=== PATIENT | female | born 1995 | race Caucasian/White ===

== ENCOUNTER 2017-03-02 09:35 | Observation (INO) ==
[2017-03-02 06:50] VITALS: BP 120/78
--- NOTE | 2017-03-02 06:58 | OB/GYN Progress Note ---
Date of Encounter: 03/02/17 Time of Encounter: 07:30 - Assessment and Plan (1) Dysuria Status: Acute U/A showed: Protein: 100 Blood: Large Nitrite + Leuk Esterase: Large RBC: 50-100 WBC: TNTC Squamous Epth: Many Bacteria: Many US retroperitoneal showed: 1. Moderate right hydronephrosis without evidence of obstructing lesion. 2. Echogenic debris within the lumen of the bladder either due to cystitis or blood products ; correlate with urinalysis. Gave rocephin IV and prescribed keflex for outpatient Plan for discharge with strict orders to return for fever, chills, or worsening symptoms (2) 22 weeks gestation of Status: Acute Sees Dr. Starr in the office Next appt 03/11/17 (3) Normal baseline heart rate during in second trimester Status: Acute 155 bpm Subjective - Subjective Principal diagnosis: UTI Interval history: Patient is a 21 year-old female at 22 weeks who presents to labor and delivery with possible UTI vs stone. She complains of dysuria and right back pain. The quality of the pain was an ache that has progressed to sharp with some abdominal cramping. Intensity has progressed to 10/10. A warm shower helped somewhat. She denies cloudiness or foul odor of her urine. She denies fever, chills, nausea, vomiting, diarrhea, and chest pain. She states that she thinks she has a history of stones, but she is not positive. Patient denies vaginal bleeding, contractions, and leakage of fluid. Uncomplicated course. She was last seen in the office by Dr. Starr on 02/17/17. Blood type: O+ Rubella and Varicella Immune Hep B negative All other serologies negative Antepartum ROS: other, no loss of fluid, no vaginal bleeding, no contractions Objective - Exam FHR: auscultation normal Auscultation: bilateral: normal Abdomen: Present: normal appearance, soft, gravid. Absent: tenderness Uterus: Present: normal, firm Comments: Cardiovascular: RRR. +S1 and S2 Abdomen: Mild CVAT. No tenderness to palpation.
[2017-03-02 07:07] LABS: Bilirubin,Urine Negative (Negative); Blood,Urine Large (Negative); Clarity,Urine Turbid (Clear); Color,Urine Yellow (Yellow); Glucose,Urine (UA) Normal (Normal); Ketones,Urine Negative (Negative); Leukocyte Esterase,Urine Large (Negative); Nitrite,Urine Positive (Negative); PH,Urine 7.5 pH Units (5.0-8.0); Protein,Urine 100 mg/dL (Neg-Trace); Specific Gravity,Urine 1.017 (1.010-1.025); Urobilinogen,Urine Normal (Normal)
[2017-03-02 07:09] LABS: Bacteria,Urine Many per hpf (None-Few); Hyaline Casts,Urine None Seen per lpf (None-Few); RBC,Urine 50-100 per hpf (0-3); WBC,Urine TNTC per hpf (0-3)
[2017-03-02 07:22] LABS: Squamous Epithelial Cell,Urine Many per lpf (None-Few)
[2017-03-02 10:52] LABS: Amphetamine Screen,Urine Negative ng/mL (Cutoff=1000); Barbiturate Screen,Urine Negative ng/mL (Cutoff=200); Benzodiazepines Screen,Urine Negative ng/mL (Cutoff=200); Cannabinoid Screen,Urine Negative ng/mL (Cutoff = 50); Cocaine Screen,Urine Negative ng/mL (Cutoff= 300); Opiate Screen,Urine Negative ng/mL (Cutoff=300); Phencyclidine Screen,Urine Negative ng/mL (Cutoff=25)
[2017-03-02 11:52] LABS: Basophils % 0.2 %; Eosinophils % 0.1 %; Hematocrit 33.3 % (35.3-44.9); Hemoglobin 11.2 g/dL (11.5-15.4); Immature Granulocytes % 1.2 % (0-4); Lymphocytes # 1.1 K/mcL (0.6-4.6); Lymphocytes % 8.1 %; Mean Corpuscular HGB Conc 33.6 g/dL (31.6-35.5); Mean Corpuscular Hemoglobin 28.6 pg (28.0-33.3); Mean Corpuscular Volume 84.9 fL (83.0-100.0); Mean Platelet Volume 10.1 fL (9.4-12.4); Neutrophils # 11.6 K/mcL (1.6-8.9); Platelet Count 278 K/mcL (140-400); Red Blood Count 3.92 M/mcL (3.82-4.97); Red Cell Distribution Width 14.2 % (11.5-14.5); Segmented Neutrophils % 83.4 %
[2017-03-02 12:02] LABS: BUN/Creatinine Ratio 9 (6-26); Carbon Dioxide 22 mEq/L (19-29); Chloride 107 mEq/L (98-109); Glucose 76 mg/dL (70-99); Osmolality,Calculated 278 (280-300); Potassium 3.7 mEq/L (3.5-4.5); Sodium 136 mEq/L (136-145); eGFR For African Americans > 60; eGFR For Non-African Americans > 60
[2017-03-02 12:03] LABS: Blood Urea Nitrogen 5 mg/dL (7-20)
[2017-03-02 12:10] LABS: Platelet Estimate Normal (Normal); Reactive Lymphocytes Present (Not Present)
== END 2017-03-02 13:20 | disposition home or self-care (01) ==
LOC: 1NENULAB
PROVIDERS: ADMIT Advanced Practice Midwife; ATTEND Advanced Practice Midwife

== ENCOUNTER → 2017-06-10 13:00 | Observation (INO) ==
[2017-06-10 11:40] LABS: Bilirubin,Urine Negative (Negative); Blood,Urine Negative (Negative); Clarity,Urine Clear (Clear); Color,Urine Yellow (Yellow); Glucose,Urine (UA) Normal (Normal); Ketones,Urine Negative (Negative); Leukocyte Esterase,Urine Large (Negative); Nitrite,Urine Negative (Negative); PH,Urine 6.5 pH Units (5.0-8.0); Protein,Urine Trace mg/dL (Neg-Trace); Urobilinogen,Urine Normal (Normal)
[2017-06-10 11:55] LABS: Amphetamine Screen,Urine Negative ng/mL (Cutoff=1000); Barbiturate Screen,Urine Negative ng/mL (Cutoff=200); Benzodiazepines Screen,Urine Negative ng/mL (Cutoff=200); Cannabinoid Screen,Urine Negative ng/mL (Cutoff = 50); Cocaine Screen,Urine Negative ng/mL (Cutoff= 300); Opiate Screen,Urine Negative ng/mL (Cutoff=300); Phencyclidine Screen,Urine Negative ng/mL (Cutoff=25)
--- NOTE | 2017-06-10 11:55 | OB/GYN Progress Note ---
Date of Encounter: 06/10/17 Time of Encounter: 11:53 - Assessment and Plan (1) with 36 completed weeks gestation Current Visit: Yes Status: Acute PNL completed. GBS negative. Supportive care. (2) Uterine contractions during Current Visit: Yes Status: Acute - UA shows no UTI, due to large pancho est reflex culture - heart monitor placed, currently category 1 - observe with serial cervix exams Subjective - Subjective Principal diagnosis: contractions Interval history: Lilli is a 21 y/o female at 36+3 wks with no complications presented to labor and delivery due to frequent contractions. Patient states that the began 2 days ago and then became close to each other last night every couple of minutes. Patient stated that she counted movement last night and had 5 movements in 1 hr. Patient denies vaginal bleeding or fluid loss. Patient denies fevers, chills, changes in vision, or dysuria. PNL: O+ RH-, RPR - , RI, HBsAg -, HIV -, GBS -, Gypsy+ Antepartum ROS: movement normal, contractions, no loss of fluid, no vaginal bleeding Objective - Vital Signs Vital Signs: Intake and Output 06/09/17 06/10/17 06/10/17 23:59 07:59 15:59 Other: Weight 69.7 kg Patient Weight 06/10/17 23:59 Weight 69.7 kg - Exam FHR: category 1 FHR comments: FHR 130 bpm moderate variability +15x15 accels no decels noted. Auscultation: bilateral: normal Abdomen: Present: normal appearance, soft Uterus: Present: normal Cervical dilation: 2cm Cervix effacement: 60% station: 2 Comments: per nursing. I examined this patient and my medical decision-making was reviewed with the Resident Physician. I agree with the documented findings, disposition and treatment plan as described except to the extent set forth below. JANET Hughes - Labs Labs: Abnormal lab results Ur Leukocyte Esterase Large (Negative) H 06/10/17 11:30
[2017-06-10 11:58] LABS: Mucus,Urine Few (Few); Squamous Epithelial Cell,Urine Many per lpf (None-Few)
[2017-06-10 12:00] LABS: Yeast,Urine Few per hpf (None Seen)
[2017-06-10 12:03] LABS: Bacteria,Urine Moderate per hpf (None-Few); Renal Epithelial Cells,Urine Few per hpf (None-Few)
--- NOTE | 2017-06-10 12:59 | Discharge Summary ---
Date of Encounter: 06/10/17 Time of Encounter: 13:06 - Discharge Diagnosis (1) with 36 completed weeks gestation Priority: Secondary Status: Acute (2) Uterine contractions during Priority: Primary Status: Acute Comments: Patient diagnosed with false labor as patient was observed with mild contractions and no cervix change. FHR: 130, reactive NST. Patient instructed to limit caffeine and stay hydrated. Patient instructed to take Tylenol PM for the pain. Discussed with Charlotte Duque. Pt safe for discharge home, with labor precautions, when to return to triage or call provider. Pt verbalizes understanding. - Discharge Medications Allergies/Adverse Reactions: 3 Allergy/AdvReac Type Severity Reaction Status Date / Time No Known Allergies Allergy Verified 04/12/17 17:46 Data Procedures and tests throughout hospitalization: Laboratory Tests 06/10/17 06/10/17 11:30 11:30 Urine Color Yellow Urine Clarity Clear Urine pH 6.5 Ur [place] 1.020 Urine Protein Trace Urine Glucose (UA) Normal Urine Ketones Negative Urine Blood Negative Urine Nitrite Negative Urine Bilirubin Negative Urine Urobilinogen Normal Ur Leukocyte Esterase Large H Urine Microscopic WBC 5-15 H Ur Squamous Epith Cells Many H Ur Renal Epithelial Cell Few Urine Bacteria Moderate H Urine Mucus Few Urine Yeast Few H Ur Culture Indicated? NO Urine Opiates Screen Negative Ur Barbiturates Screen Negative Ur Phencyclidine Scrn Negative Ur Amphetamines Screen Negative U Benzodiazepines Scrn Negative Urine Cocaine Screen Negative U Marijuana (THC) Screen Negative Labs on day of discharge: Labs from last 24 hours 06/10/17 06/10/17 11:30 11:30 Urine Color Yellow Urine Clarity Clear Urine pH 6.5 Ur [place] 1.020 Urine Protein Trace Urine Glucose (UA) Normal Urine Ketones Negative Urine Blood Negative Urine Nitrite Negative Urine Bilirubin Negative Urine Urobilinogen Normal Ur Leukocyte Esterase Large H Urine Microscopic WBC 5-15 H Ur Squamous Epith Cells Many H Ur Renal Epithelial Cell Few Urine Bacteria Moderate H Urine Mucus Few Urine Yeast Few H Ur Culture Indicated? NO Urine Opiates Screen Negative Ur Barbiturates Screen Negative Ur Phencyclidine Scrn Negative Ur Amphetamines Screen Negative U Benzodiazepines Scrn Negative Urine Cocaine Screen Negative U Marijuana (THC) Screen Negative Date of admission: 06/10/17 10:55 Primary care physician: Fidelia Consults: none Discharging clinician: Charlotte Duque Anticipated date of discharge: 06/10/17 - Patient Status Disposition: Home, Self-Care Condition: Good Functional capacity at discharge: independent ambulation Overall status at discharge: patient is progressing back to baseline - Discharge Instructions Follow Up With: Mavis Starr MD [Partnered Physician] - Additional Instructions: Call 911 for any of the following: You have heavy vaginal bleeding. You cannot get to the hospital before the baby starts to come out. Seek care immediately if: You have regular, painful contractions that are less than 5 minutes apart and last 30 to 70 seconds each. You have a constant trickle or sudden gush of clear fluid from your vagina. You notice a sudden decrease in your baby's movement. Contact your field underwriter or healthcare provider if: You have pain in your lower back or abdomen that does not get better when you change positions. You have bloody mucus or show. You have questions or concerns about your condition or care. Early labor signs and symptoms: Lightening occurs when your baby drops inside your pelvis. You may feel increased pressure in your pelvis. This may happen a few weeks to a few hours before your labor begins. Contractions are cramps and tightening that occur in your uterus to help move the baby through your canal. Contractions occur regularly and more often each time. Each one lasts about 30 to 70 seconds, and gets stronger until you deliver your baby. Contractions do not go away with movement. The pain usually starts in your lower back and moves to your abdomen. Effacement occurs when your cervix softens and thins, so it can easily open for the baby. You will not be able to feel effacement. Your healthcare provider will examine your cervix for effacement. Dilation is widening of your cervix. Your healthcare provider will examine your cervix for dilation. Your cervix may start to dilate weeks before your baby is delivered. Your cervix will be fully opened and ready for delivery when it is dilated to 10 centimeters. Increased discharge from your vagina may occur. It may be brown, pink, clear, or slightly bloody. This discharge may also be called bloody show. Bloody show is a mucus plug that forms and blocks your cervix during . The discharge may mean that your cervix is opening up and getting ready for delivery. Rupture of membranes is a sudden release of clear fluid from your vagina. Ruptured membranes means your water broke. Your healthcare provider may need to break your water if it does not happen on its own. - Diet and Activity Activity: increase activity as tolerated Diet: regular diet Hospital Course EXTERN Reason for admission: other (contractions) Hospital course: Lilli is a 21 y/o female at 36+3 wks with no complications presented to labor and delivery due to frequent contractions. Patient states that the began 2 days ago and then became close to each other last night every couple of minutes. Patient stated that she counted movement last night and had 5 movements in 1 hr. Patient denies vaginal bleeding or fluid loss. Patient denies fevers, chills, changes in vision, or dysuria. Patient diagnosed with false labor as patient was observed with mild contractions and no cervix changes overtime. FHR: 130, reactive NST. Patient instructed to limit caffeine and stay hydrated. Patient instructed to take Tylenol PM for the pain. Discussed with Charlotte Duque. Pt safe for discharge home, with labor precautions, when to return to triage or call provider. Pt verbalizes understanding. Time Attestation: Total time spent providing and/or coordinating discharge services: Exam - Constitutional Vitals: wnl. General appearance IM: cooperative, A&O X 3, pleasant - Respiratory Respiratory exam: Present: CTAB. Absent: accessory muscle use, stridor, wheezes , tachypnea - Cardiovascular Cardiovascular exam IM: Present: RRR - Rectal Rectal exam: deferred - Uterus Position: 3 Fingers Above Umbilicus - Extremities Exam Extremities exam IM: Absent: pedal edema, tenderness - Neurological Exam Neurological exam: CN II-XII intact - Other Additional findings: I examined this patient and my medical decision-making was reviewed with the Resident Physician. I agree with the documented findings, disposition and treatment plan as described except to the extent set forth below. JANET Hughes - VTE Reasons for not Prescribing Prophylaxis: Treatment not Indicated - Low risk for VTE
== END | disposition home or self-care (01) ==
LOC: 1NENULAB
PROVIDERS: ADMIT Obstetrics & Gynecology; ATTEND Obstetrics & Gynecology

== ENCOUNTER → 2017-06-12 16:43 | Observation (INO) ==
[2017-06-12 16:29] LABS: Amphetamine Screen,Urine Negative ng/mL (Cutoff=1000); Barbiturate Screen,Urine Negative ng/mL (Cutoff=200); Benzodiazepines Screen,Urine Negative ng/mL (Cutoff=200); Cannabinoid Screen,Urine Negative ng/mL (Cutoff = 50); Cocaine Screen,Urine Negative ng/mL (Cutoff= 300); Opiate Screen,Urine Negative ng/mL (Cutoff=300); Phencyclidine Screen,Urine Negative ng/mL (Cutoff=25)
--- NOTE | 2017-06-12 16:41 | Discharge Summary ---
Date of Encounter: 06/12/17 Time of Encounter: 16:41 - Discharge Diagnosis (1) with 36 completed weeks gestation Priority: Primary Status: Acute Comments: admitted for observation for labor (2) Uterine contractions during Priority: Secondary Status: Acute Comments: false labor - Discharge Medications Allergies/Adverse Reactions: 3 Allergy/AdvReac Type Severity Reaction Status Date / Time No Known Allergies Allergy Verified 04/12/17 17:46 Data Procedures and tests throughout hospitalization: Laboratory Tests 06/12/17 15:25 Urine Opiates Screen Negative Ur Barbiturates Screen Negative Ur Phencyclidine Scrn Negative Ur Amphetamines Screen Negative U Benzodiazepines Scrn Negative Urine Cocaine Screen Negative U Marijuana (THC) Screen Negative Labs on day of discharge: Labs from last 24 hours 06/12/17 15:25 Urine Opiates Screen Negative Ur Barbiturates Screen Negative Ur Phencyclidine Scrn Negative Ur Amphetamines Screen Negative U Benzodiazepines Scrn Negative Urine Cocaine Screen Negative U Marijuana (THC) Screen Negative Date of admission: 06/12/17 15:07 Discharging clinician: Charlotte Duque Anticipated date of discharge: 06/12/17 - Patient Status Disposition: Home, Self-Care Condition: Good Functional capacity at discharge: independent ambulation - Discharge Instructions Follow Up With: Mavis Strar MD [Partnered Physician] - - Diet and Activity Activity: increase activity as tolerated Diet: regular diet 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 Patient denies VB. Patient reports +FM. SVE by RN was 2/75/-2 nitrazine was negative and perineum was dry. Time Attestation: Total time spent providing and/or coordinating discharge services: Time Spent: Less than 30 minutes Exam - Constitutional General appearance IM: A&O X 3, pleasant, answers questions appropriately - Respiratory Respiratory exam: Present: CTAB - Cardiovascular Cardiovascular exam IM: Present: RRR, +S1, +S2 - GI/Abdominal GI/Abdominal exam IM: normal bowel sounds - Neurological Exam Neurological exam: alert, oriented X3, reflexes normal - Other Additional findings: FHR 135 bpm moderate variability +15x15 accels no decels noted. Cat. 1 tracing. Contractions irregular. No cervical change per RN - VTE Reasons for not Prescribing Prophylaxis: Treatment not Indicated - Low risk for VTE
== END | disposition home or self-care (01) ==
LOC: 1NENULAB
PROVIDERS: ADMIT Advanced Practice Midwife; ATTEND Advanced Practice Midwife

== ENCOUNTER 2017-06-29 04:00 | Inpatient (IN) ==
[2017-06-29] MEDS ORDERED: miSOPROStol 25 MCG TABLET VG PRN (04:17)
[2017-06-29] MEDS ORDERED: Naloxone 0.4 MG/ML INJ IVP PRN (04:18)
[2017-06-29] MEDS ORDERED: Famotidine 20 MG/2 ML VIAL IVP PRN (04:18)
[2017-06-29] MEDS ORDERED: Metoclopramide 10 MG/2 ML VIAL IVP PRN (04:18)
[2017-06-29] MEDS ORDERED: *HR* Nalbuphine 20 MG/ML AMPUL IVP PRN (04:18)
[2017-06-29] MEDS ORDERED: Ringers Solution, Lactated 1,000 ML IVC SCH (04:30)
[2017-06-29 04:42] LABS: Basophils % 0.2 %; Eosinophils # 0.1 K/mcL (0.0-0.6); Eosinophils % 1.2 %; Hematocrit 28.9 % (35.3-44.9); Immature Granulocytes % 1.4 % (0-4); Lymphocytes % 20.1 %; Mean Corpuscular HGB Conc 31.1 g/dL (31.6-35.5); Mean Corpuscular Hemoglobin 24.3 pg (28.0-33.3); Mean Corpuscular Volume 77.9 fL (83.0-100.0); Monocytes % 10.4 %; Neutrophils # 6.6 K/mcL (1.6-8.9); Nucleated Red Blood Cells 0.2 /100 WBC (0); Platelet Count 286 K/mcL (140-400); Red Blood Count 3.71 M/mcL (3.82-4.97); Red Cell Distribution Width 14.5 % (11.5-14.5); Segmented Neutrophils % 66.7 %
[2017-06-29 04:45] LABS: Amphetamine Screen,Urine Negative ng/mL (Cutoff=1000); Barbiturate Screen,Urine Negative ng/mL (Cutoff=200); Benzodiazepines Screen,Urine Negative ng/mL (Cutoff=200); Cannabinoid Screen,Urine Negative ng/mL (Cutoff = 50); Cocaine Screen,Urine Negative ng/mL (Cutoff= 300); Opiate Screen,Urine Negative ng/mL (Cutoff=300); Phencyclidine Screen,Urine Negative ng/mL (Cutoff=25)
--- NOTE | 2017-06-29 07:19 | OB/GYN History & Physical ---
Date of Encounter: 06/29/17 Time of Encounter: 07:17 Assessment and Plan (1) 39 weeks gestation of Current visit: Yes Status: Acute Here for elective induction of labor - admit to L&D Monitoring - baseline 120 with variability and accels Contractions irregular Induction via cytotec Expect History of Present Illness Chief complaint: Induction of labor HPI: Ms. Ny is a 21 year old female at 39w1d presenting to L&D for elective induction of labor. She reports good movement. She is feeling irregular contractions. Denies loss of fluid, vaginal bleeding, or vaginal discharge. She reports no complications with this . Denies fevers, chills, headaches, vision changes, dyspnea, abdominal pain, or edema. Blood type O+ GBS negative Rubella immune Varicella immune All other serologies negative Past Med Surg Social Fam HX - Past Medical History Medical history: no medical history Psychiatric history: no psych history - Past Surgical History Surgical History: no surgical history - Social History Smoking Status: Never smoker Smokeless Tobacco Status: No Alcohol use: none Drug use: none - Family History Mother Adopted: No Age: 46 Living Status: Still Living Hx Family Cardiac Disorders: No Hx Family Respiratory Disorders: No Hx Family Cancer: No Hx Family GI Disorders: No Hx Family Genitourinary Disorders: No Hx Family Endocrine Disorder: No Hx Family Musculoskeletal Disorders: No Hx Family Neuromuscular Disorders: No Hx Family Neurologic Disorders: No Hx Family HEENT Disorders: No Hx Family Autoimmune Disorders: No Hx Family Reproductive Disorders: No Hx Family Psychosocial Disorders: No Hx Family Medical Disorders: No Obstetrical History - Pregnancies : 1 Para: 0 Term: 0 : 0 Ab's: 0 Livin - History/Complications History/Complications: None Medications and Allergies 3 Allergy/AdvReac Type Severity Reaction Status Date / Time No Known Allergies Allergy Verified 04/12/17 17:46 Review of System OB All systems PM: reviewed and no additional remarkable complaints except as stated Exam - Vital Signs Vital signs: Initial Vital Signs Pulse Resp BP 78 15 132/89 06/29/17 04:11 06/29/17 04:11 06/29/17 04:11 - Constitutional Constitutional: well developed, well nourished, no acute distress, average body habitus - HEENT HEENT: Normocephaly, Mucus Membranes Moist - Lungs Respiratory exam: CTAB - Cardiovascular Cardiovascular exam: RRR, +S1, +S2 - Abdomen Abdomen: Present: bowel sounds normal, gravid, non tender - Extremities Extremities exam: normal capillary refill, normal inspection - Vulva Vulva: bilateral: normal - Vagina Vagina: Present: normal moisture - Cervix Dilation: 1 (1-2cm per nursing) - Uterus Uterus exam: Present: normal size, normal contour - Anus/Rectum Anus/Rectum: Present: normal perianal skin - Comments Comments: FHT - baseline 120 with variability and accels - Category I Contractions irregular Results Result Diagrams: 06/29/17 04:30 Abnormal lab results RBC 3.71 M/mcL (3.82-4.97) L 06/29/17 04:30 Hgb 9.0 g/dL (11.5-15.4) L 06/29/17 04:30 Hct 28.9 % (35.3-44.9) L 06/29/17 04:30 MCV 77.9 fL (83.0-100.0) L 06/29/17 04:30 MCH 24.3 pg (28.0-33.3) L 06/29/17 04:30 MCHC 31.1 g/dL (31.6-35.5) L 06/29/17 04:30 Nucleated RBCs/100 WBC 0.2 /100 WBC (0) H 06/29/17 04:30 All other labs normal. - VTE Reasons for not Prescribing Prophylaxis: Treatment not Indicated - Low risk for VTE
[2017-06-29] MEDS ORDERED: Oxytocin 20 units/ LR 1000 mL 20 UNIT/1,000 ML BAG IVC SCH (11:15)
[2017-06-29] MEDS ORDERED: *HR* FentaNYL (PF) 100 MCG/2 ML VIAL EP ONE (13:09)
[2017-06-29] MEDS ORDERED: Bupivacaine-MPF 0.25% 10 ML VIAL EP ONE (13:09)
[2017-06-29] MEDS ORDERED: Epidural Premix (fent/bupiv) 110 ML EP ONE ×2 (13:11→20:59)
[2017-06-29] MEDS ORDERED: Bupivacaine-MPF 0.25% 10 ML VIAL ONE (13:11)
[2017-06-29] MEDS ORDERED: *HR* FentaNYL (PF) 100 MCG/2 ML VIAL ONE ×2 (13:12→23:00)
[2017-06-29] MEDS ORDERED: Epidural Premix (fent/bupiv) 110 ML EP SCH (13:15)
--- NOTE | 2017-06-29 13:54 | Anesthesia Evaluation PreOp ---
Date of Encounter: 06/29/17 Time of Encounter: 13:17 - Past History Planned Operation: KATEY Cardiac History: Denies any Significant Hx Pulmonary History: Denies Any Significant HX STRIP CLEANER History: Denies Any Significant HX Other Medical History: Denies Any Significant HX Anesthesia History: No Prior Anesthetic Complications (never had any procedure requiring GA or NA; denies famiy h/o GA complications) : Yes Test: Positive Alcohol Use: none Drug use: none Medications and Allergies 3 Allergy/AdvReac Type Severity Reaction Status Date / Time No Known Allergies Allergy Verified 04/12/17 17:46 - Meds/Allergy Pre-op Review Medications Reviewed: Yes Allergies Reviewed: Yes Beta Blockers on Current Med List: No Anesthesia Results - Labs 06/29/17 04:30 Anesthesia Exam O2 Sat Height 1.65 m Weight 72.5 kg Vital Signs 127/86, HR 81, RR 20 NPO (# of Hours): solids > 8hrs Pain Scale: 5 Pain Scale Used: Emir (Faces) - HEENT Pupil (Motor): Pupils equal Mallampati: I Teeth: Normal Oral Opening: Greater than 3 - STRIP CLEANER LOC: Oriented STRIP CLEANER Motor: Normal RUE, Normal LUE, Normal RLE, Normal LLE, Normal Face STRIP CLEANER Sensory: Normal: RUE, LUE, RLE, LLE, Face - Cardiac Rhythm: Regular Murmur: None - Pulmonary Breath Sounds: bilateral Clear Respiratory Effort: Symmetrical Anesthesia Assess/Plan ASA Score: 2 Modified Olin Scale for Level of Consciousness: Anixous, agitated or restless Anesthetic Plan: Regional Autologous Blood: No Monitoring Plan: Standard Monitors Recovery Plan: Other
--- NOTE | 2017-06-29 13:56 | Anesthesia Procedures ---
Date of Encounter: 06/29/17 Time of Encounter: 13:55 Procedures: Anesthesia - Epidural/Spinal Patient ID/Chart reviewed: Yes Patient examined: Yes OB Eval: Gestational age: 39 weeks 1 day OB Eval: : 1 OB Eval: Hx Para: 0 OB Eval: Dilated at (cm): 3 OB Eval: Contractions: Non-stressed pattern Consent Obtained: Yes Supplemental Oxygen: None/Room Air Site Prep: Aseptic Technique, Sterile prep and drape, Povidone-Iodine 1% Patient position: upright Local Anesthetic: Lidocaine 1% Amount of Local Anesthetic used: 3 Touhy Needle Gauge: 18 Touhy Needle Depth (cm): 5 Catheter Depth at Skin (cm): 11 Test Dose (1.5% Lido + Epi): Volume given (mls): 5 Test Dose Result: Negative Loading Dose: 0.25% Marcaine (mls): 5 Loading Dose: Fentanyl (mcg): 100 Loading Dose Administered: Thru Catheter Infusion Med: 0.125% Bupivacaine w/ 2 mcg/ml Fentanyl Infusion Rate (mls/hr): 14 (w/ demand bolus of 5mL q20min PRN) Catheter Secured in Place: Tegaderm, Tape Interspace Used: L4-L5 Loss of Resistance (AYAH): Yes Blood: No CSF: No Paresthesia: No Vitals + FHT's: please see Colette SANABRIA's electronic records
--- NOTE | 2017-06-29 15:07 | OB Labor Progress Note ---
Date of Encounter: 06/29/17 Time of Encounter: 15:05 Labor Progress Note - Subjective Subjective: Patient resting comfortably with epidural in place. Discussed POC with patient. Patient denies any questions or concerns. - Cervix Cervix: 3/80/-2 - Heart Tones Heart Tones: 125 bpm moderate variability +15x15 accels no decels noted. CAt. 1 tracing - [place]: 1-2.5 min apart - Interventions Interventions: SVE, Kang catheter placed without difficulty. Patient tolerated well. 60cc sterile water placed in kang balloon. - Plan Plan: Continue labor management
--- NOTE | 2017-06-29 16:15 | OB Labor Progress Note ---
Date of Encounter: 06/29/17 Time of Encounter: 16:12 Labor Progress Note - Subjective Subjective: Pt. resting comfortably in bed with epidural. - Cervix Cervix: 6/90/-1 - Heart Tones Heart Tones: 125 bpm, moderate variability, +15x15 accels, no decels. - [place]: 2-4 min - Interventions Interventions: AROM for copious amount of clear fluid. IUPC placed. - Plan Plan: Continue labor management. Initiate Pitocin if needed.
--- NOTE | 2017-06-29 20:17 | OB Labor Progress Note ---
Date of Encounter: 06/29/17 Time of Encounter: 20:15 Labor Progress Note - Subjective Subjective: Patient resting comfortably with epidural in place. - Cervix Cervix: 7/90/-1 - Heart Tones Heart Tones: 125 bpm moderate variability +15x15 accels no decels noted. - [place]: 1.5-2.5 min apart - Interventions Interventions: SVE, patient repositioned. - Plan Plan: Continue labor management.
[2017-06-29] MEDS ORDERED: *HR* Ropivacaine/PF 0.2% 20 ML VIAL ONE (22:59)
--- NOTE | 2017-06-29 23:36 | Anesthesia Progress Note ---
Date of Encounter: 06/29/17 Time of Encounter: 23:35 Anesthesia Note - Note Note: called to patient bedside to evaluate breakthrough labor pain. pt reports b/l abdominal and back pain. confirmed proper catheter placement. patient positioned onto backside and 10mL of 0.2% ropivicaine + 100mcg fentanyl administered via epidural catheter. VSS. Pt reports minimal improvement in pain score. 06/29/17 23:35
[2017-06-30] MEDS ORDERED: Lidocaine 1% 20 ML MDV ONE (01:04)
--- NOTE | 2017-06-30 01:41 | OB/GYN Procedure Note ---
Delivery - Delivery Date: 06/30/17 Provider: Mavis Starr Intrapartum events: none Delivery induction: AROM, oxytocin, kang, cervidil Delivery monitor: external FHT, external uterine, internal uterine Anesthesia: epidural Estimated Blood Loss: 100 - Infant (s) A Delivery Date: 06/30/17 Delivery Time: 01:06 Presentation: vertex Position: SUSANA Route of delivery: Gender: Male Viability: Viable Pounds: 9 Ounces: 0 Weight Gram: 4.08 kg at 1 minute: 8 at 5 mins: 9 Shoulder Dystocia: not encountered Specimens collected: cord blood Placenta: spontaneous Cord: 3 umbilical vessels - Repair Episiotomy: none Laceration Description: Periurethral - Complications Delivery complications: none Delivery comments: of vigorous viable male infant in the SUSANA position. Shoulders delivered easily. No nuchal. No meconium. No shoulder dystosia. Infant placed on mom's belly. Apgars 8/9 at 1 and 5 minutes. Cord double clamped and cut after pulsations ceased. Placenta delivered spontaneously appears grossly intact. 3 vessel cord present. Upon peritoneal inspection, bilateral periurethral abrasions ~2.5cm in length, hemostatsis stable and left to heal by secondary intention. Fundus firm and at u/2. EBL 100ml. delivered by Dr. Ashely Starr. Attended by Dr. Faith Prado. Infant and mother stable in recovery.Pericare instructions given to patient. - Disposition Mom disposition: stable in LDR Maribel disposition: stable in LDR
[2017-06-30] MEDS ORDERED: Oxytocin 20 units/ LR 1000 mL 20 UNIT/1,000 ML BAG IVC SCH (03:48)
[2017-06-30] MEDS ORDERED: Acetaminophen 325 MG TABLET PO PRN (03:48)
[2017-06-30] MEDS ORDERED: Benzocaine/Menthol 56 GM AEROSOL SPRAY TP PRN (03:48)
[2017-06-30] MEDS: Prenatal Vit/FA 1 EACH TABLET PO SCH (07:45)
[2017-06-30] MEDS: Ibuprofen 600 MG TABLET PO PRN (18:44)
[2017-07-01 09:10] VITALS: BP 126/95
[2017-07-01] MEDS: Ibuprofen 600 MG TABLET PO PRN (09:19)
[2017-07-01] MEDS: Prenatal Vit/FA 1 EACH TABLET PO SCH (09:20)
--- NOTE | 2017-07-01 09:32 | Discharge Summary ---
Date of Encounter: 07/01/17 Time of Encounter: 09:30 - Discharge Diagnosis (1) Status post vaginal delivery Priority: Secondary Status: Acute (2) 39 weeks gestation of Priority: Primary Status: Acute (3) Anemia affecting in third trimester Priority: Secondary Status: Acute - Discharge Medications Prescriptions: Acetaminophen [Tylenol] 650 mg PO Q6HR PRN #30 tablet PRN Reason: pain Ibuprofen [Motrin] 600 mg PO Q6HR PRN #60 tab PRN Reason: pain Docusate [Colace] 100 mg PO BID PRN #10 capsule PRN Reason: Constipation Home Medications: Acetaminophen [Tylenol] 650 mg PO Q6HR PRN #30 tablet 07/01/17 [Rx] Docusate [Colace] 100 mg PO BID PRN #10 capsule 07/01/17 [Rx] Ibuprofen [Motrin] 600 mg PO Q6HR PRN #60 tab 07/01/17 [Rx] Allergies/Adverse Reactions: 3 Allergy/AdvReac Type Severity Reaction Status Date / Time No Known Allergies Allergy Verified 04/12/17 17:46 Data Procedures and tests throughout hospitalization: Laboratory Tests 06/29/17 06/29/17 04:30 04:30 WBC 10.0 RBC 3.71 L Hgb 9.0 L Hct 28.9 L MCV 77.9 L MCH 24.3 L MCHC 31.1 L RDW 14.5 Plt Count 286 MPV 11.0 Immature Gran % 1.4 Seg Neutrophils % 66.7 Lymphocytes % 20.1 Monocytes % 10.4 Eosinophils % 1.2 Basophils % 0.2 Neutrophils # 6.6 Lymphocytes # 2.0 Monocytes # 1.0 Eosinophils # 0.1 Basophils # 0.0 Nucleated RBCs/100 WBC 0.2 H Urine Opiates Screen Negative Ur Barbiturates Screen Negative Ur Phencyclidine Scrn Negative Ur Amphetamines Screen Negative U Benzodiazepines Scrn Negative Urine Cocaine Screen Negative U Marijuana (THC) Screen Negative Date of admission: 06/29/17 04:06 Primary care physician: Radha Mistry Consults: 06/30/17 03:48 Consult to Director Of Strategic Marketing [CONS] Routine Comment: Vaginal delivery, consult needed Discharging clinician: Kalyn Jacinto Anticipated date of discharge: 07/01/17 - Patient Status Disposition: Home, Self-Care Condition: Good Functional capacity at discharge: independent ambulation Overall status at discharge: patient is progressing back to baseline - Discharge Instructions Follow Up With: Radha Mistry MD [Primary Care Provider] - - Diet and Activity Activity: increase activity as tolerated Diet: advance to your usual diet Hospital Course Reason for admission: induction of labor Delivery: Episiotomy: none Laceration: none Other procedures: none complications: none Discharge diagnosis: IUP at term delivered [place] baby: male Hospital course: - Delivery Date: 06/30/17 Provider: Mavis Starr Intrapartum events: none Delivery induction: AROM, oxytocin, kang, cervidil Delivery monitor: external FHT, external uterine, internal uterine Anesthesia: epidural Estimated Blood Loss: 100 - Infant (s) Infant A Infant Delivery Date: 06/30/17 Delivery Time: : Presentation: vertex Position: SUSANA Route of delivery: Gender: Male Viability: Viable Pounds: 9 Ounces: 0 Weight Gram: 4.08 kg at 1 minute: 8 at 5 mins: 9 Shoulder Dystocia: not encountered Specimens collected: cord blood Placenta: spontaneous Cord: 3 umbilical vessels - Repair Episiotomy: none Laceration Description: Periurethral - Complications Delivery complications: none Delivery comments: of vigorous viable male infant in the SUSANA position. Shoulders delivered easily. No nuchal. No meconium. No shoulder dystosia. placed on mom's belly. Apgars 8/9 at 1 and 5 minutes. Cord double clamped and cut after pulsations ceased. Placenta delivered spontaneously appears grossly intact. 3 vessel cord present. Upon peritoneal inspection, bilateral periurethral abrasions ~2.5cm in length, hemostatsis stable and left to heal by secondary intention. Fundus firm and at u/2. EBL 100ml. Infant delivered by Dr. Ashely Starr. Attended by Dr. Faith Prado. Infant and mother stable in recovery.Pericare instructions given to patient. - Disposition Mom disposition: stable and ready for discharge Time Attestation: Total time spent providing and/or coordinating discharge services: Exam - Constitutional Vitals: Temp Pulse Resp BP Pulse Ox 98.1 F 81 18 126/95 100 07/01/17 09:08 07/01/17 09:08 07/01/17 09:08 07/01/17 09:08 07/01/17 09:08 General appearance IM: pleasant, no acute distress - Respiratory Respiratory exam: Present: CTAB - Cardiovascular Cardiovascular exam IM: Present: RRR - GI/Abdominal GI/Abdominal exam IM: soft - Uterus Position: 2 Fingers Below Umbilicus - Extremities Exam Extremities exam IM: Present: normal inspection - Neurological Exam Neurological exam: normal gait, no focal deficits - Attending Attestation I examined this patient and my medical decision-making was reviewed with the Resident Physician. I agree with the documented findings, disposition and treatment plan as described. Vick Jacinto CNM
== END 2017-07-01 15:20 | disposition home or self-care (01) | DRG 560 ==
LOC: 1NENULAB 04:06 → 1NENUOBS 06-30 03:47
PROVIDERS: ADMIT Student in an Organized Health Care Education/Training Program; ATTEND Student in an Organized Health Care Education/Training Program